=== PATIENT | female | born 1990 | race Caucasian/White ===

== ENCOUNTER 2018-07-10 09:09 | Emergency (ER) | payer MEDICAID, OTHER ==
[~2018-07-10] VITALS: Ht 152.4 cm; Wt 78.0 kg
[2018-07-10 09:36] LABS: *BILIRUBIN,URIN NEGATIVE (NEGATIVE); *BLOOD, URINE NEGATIVE (NEGATIVE); *CLARITY,URINE CLEAR (CLEAR); *COLOR,URINE YELLOW (YELLOW); *KETONES,URINE NEGATIVE (NEGATIVE); *UROBILINOGEN,URINE 0.2 E.U./dl (NORMAL); LEUKOCYTE ESTERASE ,URINE NEGATIVE (NEGATIVE); NITRITE, URINE NEGATIVE (NEGATIVE); PH,URINE 5.5 (5.0-8.0); UGLUCOSE NEGATIVE (NEGATIVE)
[2018-07-10 09:37] LABS: *URINE HCG, QUAL NEGATIVE (NEGATIVE)
[2018-07-10 09:54] VITALS: BP 106/70
--- NOTE | 2018-07-10 09:55 | NUR ---
Patient discharged to home in stable conditon. Written and verbal after care instructions given. Patient verbalizes understanding of instructions.
== END 2018-07-10 09:55 | disposition home or self-care (01) ==
LOC: ER 09:09
DX: R10.30 Lower abdominal pain, unspecified (principal); R35.0 Frequency of micturition; Z88.5 Allergy status to narcotic agent; Z88.8 Allergy status to other drugs, medicaments and biological substances
CPT/HCPCS: 84703; A4663

== ENCOUNTER 2023-03-08 19:57 | Emergency (ER) | payer MEDICAID, OTHER ==
[~2023-03-08] VITALS: Ht 152.4 cm; Wt 59.0 kg
[2023-03-08] MEDS ORDERED: KETOROLAC TROMETHAMINE 30 MG INJ IM ONE (20:30)
[2023-03-08] MEDS ORDERED: KETOROLAC TROMETHAMINE 30 MG INJ ONE (20:32)
[2023-03-08 20:38] LABS: *BILIRUBIN,URIN NEGATIVE (NEGATIVE); *BLOOD, URINE 2+ (NEGATIVE); *CLARITY,URINE CLEAR (CLEAR); *COLOR,URINE YELLOW (YELLOW); *KETONES,URINE NEGATIVE (NEGATIVE); *PROTEIN,URINE 2+ (NEGATIVE); *UROBILINOGEN,URINE 0.2 E.U./dl (NORMAL); LEUKOCYTE ESTERASE ,URINE TRACE (NEGATIVE); NITRITE, URINE POSITIVE (NEGATIVE); PH,URINE 5.5 (5.0-8.0); UGLUCOSE NEGATIVE (NEGATIVE)
[2023-03-08 20:40] LABS: BACTERIA,URINE FEW /HPF (NONE SEEN)
[2023-03-08 20:40] LABS: BASOPHILS # (AUTO) 0.1 K/UL (0.0-0.2); BASOPHILS % (AUTO) 0.9 % (0.0-2.0); EOSINOPHILS # (AUTO) 0.1 K/uL (0.0-0.7); HEMATOCRIT 35.6 % (31.2-41.9); HEMOGLOBIN 11.2 g/dL (10.9-14.3); LYMPHOCYTES # (AUTO) 1.7 K/uL (0.8-4.8); MEAN CORPUSCULAR HGB CONC 32 g/dL (32.3-35.6); MONOCYTES # (AUTO) 0.7 K/uL (0.1-1.30); MONOCYTES % (AUTO) 6.6 % (0.0-11.0); NEUTROPHILS # (AUTO) 8.6 K/uL (1.8-8.9); NEUTROPHILS % (AUTO) 76.5 % (38.5-71.5); PLATELET COUNT (AUTO) 318 K/uL (179-408); RED BLOOD CELL COUNT(AUTO) 4.68 MIL/uL (3.63-4.92); RED CELL DISTRIBUTION WIDTH 18.2 % (12.3-17.7); WHITE BLOOD COUNT (AUTO) 11.3 K/uL (3.8-11.8)
[2023-03-08 20:42] LABS: DIFFERENTIAL COMMENT 1
[2023-03-08 20:42] LABS: *URINE HCG, QUAL NEGATIVE (NEGATIVE)
[2023-03-08 20:54] LABS: *AMPHETAMINE, URINE NEGATIVE (NEGATIVE); *BARBITURATE, URINE NEGATIVE (NEGATIVE); *BENZODIAZEPINE, URINE NEGATIVE (NEGATIVE); *CANNABINOID, URINE NEGATIVE (NEGATIVE); *COCCAINE, URINE NEGATIVE (NEGATIVE); *OPIATE, URINE NEGATIVE (NEGATIVE); *PHENCYCLIDINE SCREEN,URINE NEGATIVE (NEGATIVE)
[2023-03-08 20:59] LABS: ALBUMIN 4.1 g/dL (3.4-5.0); BILIRUBIN,TOTAL 0.5 mg/dL (0.2-1.0); CALCIUM 9.3 mg/dL (8.5-10.1); CREATININE 0.8 mg/dL (0.6-1.3); POTASSIUM 4.2 mmol/L (3.5-5.1); TOTAL PROTEIN, SERUM 8.6 g/dL (6.4-8.2)
[2023-03-08 21:09] LABS: FENTANYL, URINE NEGATIVE (NEGATIVE)
[2023-03-08] MEDS ORDERED: DOXY100C5 PO (22:00)
[2023-03-08 23:12] VITALS: BP 118/77; TEMP 97.8; O2SAT 99
== END 2023-03-08 23:13 | disposition home or self-care (01) ==
LOC: ER 20:02
DX: R10.9 Unspecified abdominal pain (principal); N76.0 Acute vaginitis; R10.2 Pelvic and perineal pain; Z88.1 Allergy status to other antibiotic agents; Z88.5 Allergy status to narcotic agent
CPT/HCPCS: 99285; 74176; 80053; 84703; 85025; 36415; 96372; 80307; 81001; J1885; A4606; A4663